=== PATIENT | male | born 1975 | race Caucasian/White ===

== ENCOUNTER 2020-09-13 08:38 | Emergency (ER) | payer BC ==
[2020-09-13] MEDS ORDERED: Sodium Chloride 0.9% 10 ML Syringe FLUSH PRN (08:48)
[2020-09-13] MEDS ORDERED: Aspirin 81 MG Tab.Chew PO ONE (08:48)
[2020-09-13] MEDS ORDERED: Sodium Chloride 0.9% 2.5 ML Syringe FLUSH PRN ×2 (08:48)
[2020-09-13] MEDS ORDERED: Sodium Chloride 0.9% 1,000 ML IV ONE (08:48)
[2020-09-13] MEDS ORDERED: LORazepam 2 MG/ML SDV IVPUSH ONE (08:49)
--- NOTE | 2020-09-13 08:53 | EDM.PDOC ---
ED HPI GENERAL MEDICAL PROBLEM - General Stated Complaint: AMBULANCE Time Seen by Provider: 09/13/20 08:42 - History of Present Illness INITIAL COMMENTS - FREE TEXT/NARRATIVE: History of present illness: [] Patient presents to the ED after waking up this morning experiencing some severe anxiety and a pain in the pit of his stomach that caused him to be short of breath. He is never had this type of thing before he thinks it might be anxiety he has a history of hypertension and diabetes pain was epigastric did not radiate was associated with shortness of breath he has had some anxiety and difficulty sleeping lately he denies any leg pain or leg swelling cough congestion or fever nothing seems to make it better or worse Review of systems: As per history of present illness and below otherwise all systems reviewed and negative. Past medical history: As per history of present illness and as reviewed below otherwise noncontributory. Surgical history: As per history of present illness and as reviewed below otherwise noncontributory. Social history: No reported history of drug or alcohol abuse. Family history: As per history of present illness and as reviewed below otherwise noncontributory. Physical exam: HEENT: Atraumatic, normocephalic, pupils reactive, negative for conjunctival pallor or scleral icterus, mucous membranes moist, throat clear, neck supple, nontender, trachea midline. Lungs: Clear to auscultation, breath sounds equal bilaterally, chest nontender. Heart: S1S2, regular, negative for clicks, rubs, or JVD. Abdomen: Soft, nondistended, nontender. Negative for masses or hepatosplenomegaly. Negative for costovertebral tenderness. Pelvis: Stable nontender. Genitourinary: Deferred. Rectal: Deferred. Extremities: Atraumatic, negative for cords or calf pain. Neurovascular unremarkable. Neuro: Awake, alert, oriented. Cranial nerves II through XII unremarkable. Cerebellum unremarkable. Motor and sensory unremarkable throughout. Exam nonfocal. Diagnostics: [] Therapeutics: [] Impression: Epigastric pain and anxiety [] Plan: Cardiac work-up Ativan for his anxiety reassess the patient [] Definitive disposition and diagnosis as appropriate pending reevaluation and review of above. general Pain Score (Numeric/FACES): 7 - Related Data Allergies Allergy/AdvReac Type Severity Reaction Status Date / Time No Known Allergies Allergy Verified 09/13/20 08:53 Home Meds: Home Meds FLUoxetine [PROzac] 60 mg PO DAILY 09/13/20 [History] Folic Acid 1 mg PO DAILY 09/13/20 [History] Losartan/Hydrochlorothiazide [Losartan-HCTZ 100-25 MG] 1 each PO DAILY 09/13/20 [History] amLODIPine [Norvasc] 5 mg PO DAILY 09/13/20 [History] metFORMIN [Glucophage] 500 mg PO BIDMEALS 09/13/20 [History] ED ROS GENERAL - Review of Systems Review Of Systems: See Below ED EXAM, GENERAL - Physical Exam Exam: See Below #1 Interpretation EKG Interpretation Comments: EKG normal sinus rhythm rate of 115 bpm sinus tachycardia nonspecific ST-T changes no uma ischemia read and interpreted by me Course - Vital Signs Text/Narrative:: Patient has 2 - troponins and nonischemic EKG he feels better in the emergency department at this time. He will be discharged home there is noted that he has a mildly elevated liver functions and lipase he is counseled to stop drinking and get help with his drinking. One-view portable chest read interpreted by me no acute cardiopulmonary pathology is evident Last Recorded V/S: Last Vital Signs Temp 36.8 C 09/13/20 12:12 Pulse 99 09/13/20 12:12 Resp 14 09/13/20 12:12 BP 158/80 H 09/13/20 12:12 Pulse Ox 95 09/13/20 12:12 - Orders/Labs/Meds Orders: Active Orders 24 hr Category Date Time Status EKG Documentation Completion [RC] STAT Care 09/13/20 08:48 Active Sodium Chloride 0.9% [Saline Flush] Med 09/13/20 08:48 Active 10 ml FLUSH ASDIRECTED PRN Sodium Chloride 0.9% [Saline Flush] Med 09/13/20 08:48 Active 2.5 ml FLUSH ASDIRECTED PRN Saline Lock Insert [OM.PC] Stat Oth 09/13/20 08:48 Ordered Medication Orders Sodium Chloride (Saline Flush) 10 ml FLUSH ASDIRECTED PRN PRN Reason: Keep Vein Open Last Admin: 09/13/20 09:03 Dose: 10 ml Documented by: [id number] Sodium Chloride (Saline Flush) 2.5 ml FLUSH ASDIRECTED PRN PRN Reason: Keep Vein Open Last Admin: 09/13/20 09:04 Dose: 2.5 ml Documented by: [id number] Labs: Laboratory Tests 09/13/20 09/13/20 09/13/20 Range/Units 08:49 08:49 11:37 WBC 11.11 H (4.0-11.0) K/uL RBC 5.26 (4.50-5.90) M/uL Hgb 17.5 H (13.0-17.0) g/dL Hct 50.0 (38.0-50.0) % MCV 95.1 (80.0-98.0) fL MCH 33.3 H (27.0-32.0) pg MCHC 35.0 (31.0-37.0) g/dL RDW Std Deviation 43.4 (28.0-62.0) fl RDW Coeff of Sydnie 13 (11.0-15.0) % Plt Count 238 (150-400) K/uL MPV 10.70 (7.40-12.00) fL Neut % (Auto) 76.6 (48.0-80.0) % Lymph % (Auto) 14.8 L (16.0-40.0) % [place] % (Auto) 6.7 (0.0-15.0) % Eos % (Auto) 1.4 (0.0-7.0) % Baso % (Auto) 0.5 (0.0-1.5) % Neut # (Auto) 8.5 H (1.4-5.7) K/uL Lymph # (Auto) 1.6 (0.6-2.4) K/uL [place] # (Auto) 0.7 (0.0-0.8) K/uL Eos # (Auto) 0.2 (0.0-0.7) K/uL Baso # (Auto) 0.1 (0.0-0.1) K/uL Nucleated RBC % 0.0 /100WBC Nucleated RBCs # 0 K/uL Sodium 135 L (136-148) mmol/L Potassium 3.6 (3.5-5.1) mmol/L Chloride 97 L (98-107) mmol/L Carbon Dioxide 24.3 (21.0-32.0) mmol/L BUN 15 (7.0-18.0) mg/dL Creatinine 1.0 (0.8-1.3) mg/dL Est Cr Clr Drug Dosing 110.74 mL/min Estimated GFR (MDRD) > 60.0 ml/min Glucose 131 H (74-106) mg/dL Calcium 9.6 (8.5-10.1) mg/dL Total Bilirubin 1.4 H (0.2-1.0) mg/dL AST 93 H (15-37) IU/L ALT 155 H (14-63) IU/L Alkaline Phosphatase 99 (46-116) U/L Troponin I < 0.050 < 0.050 (0.000-0.056) ng/mL Total Protein 9.1 H (6.4-8.2) g/dL Albumin 4.4 (3.4-5.0) g/dL Globulin 4.7 H (2.6-4.0) g/dL Albumin/Globulin Ratio 0.9 (0.9-1.6) Lipase 645 H (73-393) U/L Meds: Medications Generic Name Dose Route Start Last Admin Trade Name Freq PRN Reason Stop Dose Admin Sodium Chloride 10 ml 09/13/20 08:48 09/13/20 09:03 Saline Flush FLUSH 10 ml ASDIRECTED PRN Administration Keep Vein Open Sodium Chloride 2.5 ml 09/13/20 08:48 09/13/20 09:04 Saline Flush FLUSH 2.5 ml ASDIRECTED PRN Administration Keep Vein Open Discontinued Medications Generic Name Dose Route Start Last Admin Trade Name Kenia PRN Reason Stop Dose Admin Aspirin 324 mg 09/13/20 08:48 09/13/20 09:02 Aspirin PO 09/13/20 08:49 324 mg ONETIME ONE Administration Sodium Chloride 1,000 mls @ 999 mls/hr 09/13/20 08:48 09/13/20 09:02 Normal Saline IV 09/13/20 09:48 999 mls/hr BOLUS ONE Administration Lorazepam 1 mg 09/13/20 08:49 09/13/20 09:03 Ativan IVPUSH 09/13/20 08:50 1 mg ONETIME ONE Administration Sodium Chloride 2.5 ml 09/13/20 08:48 Saline Flush FLUSH ASDIRECTED PRN Keep Vein Open Departure - Departure Time of Disposition: 12:35 Disposition: Home, Self-Care 01 Condition: Good Clinical Impression: Chest pain - Discharge Information *PRESCRIPTION DRUG MONITORING PROGRAM REVIEWED*: Not Applicable *COPY OF PRESCRIPTION DRUG MONITORING REPORT IN PATIENT REAL: Not Applicable Instructions: Shortness of Breath, Adult, [id number], Nonspecific Chest Pain, Adult Referrals: Terence Dumas MD [Primary Care Provider] - Additional Instructions: The following information is given to patients seen in the emergency department who are being discharged to home. This information is to outline your options for follow-up care. We provide all patients seen in our emergency department with a follow-up referral. The need for follow-up, as well as the timing and circumstances, are variable depending upon the specifics of your emergency department visit. If you don't have a primary care physician on staff, we will provide you with a referral. We always advise you to contact your personal physician following an emergency department visit to inform them of the circumstance of the visit and for follow-up with them and/or the need for any referrals to a consulting specialist. The emergency department will also refer you to a specialist when appropriate. This referral assures that you have the opportunity for follow-up care with a specialist. All of these measure are taken in an effort to provide you with optimal care, which includes your follow-up. Under all circumstances we always encourage you to contact your private physician who remains a resource for coordinating your care. When calling for follow-up care, please make the office aware that this follow-up is from your recent emergency room visit. If for any reason you are refused follow-up, please contact the [facility] Emergency Department at and asked to speak to the emergency department charge nurse. Sepsis Event Note (ED) - Focused Exam Vital Signs: Vital Signs Temp Pulse Resp BP Pulse Ox 09/13/20 12:12 36.8 C 99 14 158/80 H 95 09/13/20 11:12 95 16 146/78 H 97 09/13/20 10:08 100 16 133/76 99 09/13/20 09:41 100 20 149/83 H 96 09/13/20 08:50 36.2 C 116 H 20 167/98 H 96 - My Orders Last 24 Hours: My Active Orders 09/13/20 08:48 EKG Documentation Completion [RC] STAT Sodium Chloride 0.9% [Saline Flush] 10 ml FLUSH ASDIRECTED PRN Sodium Chloride 0.9% [Saline Flush] 2.5 ml FLUSH ASDIRECTED PRN Saline Lock Insert [OM.PC] Stat - Assessment/Plan Last 24 Hours: My Active Orders 09/13/20 08:48 EKG Documentation Completion [RC] STAT Sodium Chloride 0.9% [Saline Flush] 10 ml FLUSH ASDIRECTED PRN Sodium Chloride 0.9% [Saline Flush] 2.5 ml FLUSH ASDIRECTED PRN Saline Lock Insert [OM.PC] Stat
--- NOTE | 2020-09-13 09:16 | CR ---
INDICATION: Chest pain COMPARISON: None TECHNIQUE: Single-view study FINDINGS: TUBES AND LINES: None. HEART AND MEDIASTINUM: The heart size is normal. The mediastinal contour appears normal for patient age. LUNGS AND PLEURAL SPACES: The lungs appear normal.There pleural spaces are unremarkable. OSSEOUS STRUCTURES: Age-appropriate appearance. No acute focal finding. IMPRESSION: No evidence of active pulmonary disease. Dictated by Kalia La MD @ Sep 13 2020 9:15AM Signed by Dr. Kalia La @ Sep 13 2020 9:16AM
[2020-09-13 09:25] LABS: BLOOD UREA NITROGEN,BUN 15 mg/dL (7.0-18.0); CARBON DIOXIDE,CO2 24.3 mmol/L (21.0-32.0); CHLORIDE,CL 97 mmol/L (98-107); GLUCOSE RANDOM 131 mg/dL (74-106); LIPASE 645 U/L (73-393); POTASSIUM,K 3.6 mmol/L (3.5-5.1); SODIUM,NA 135 mmol/L (136-148)
== END 2020-09-13 12:45 | disposition home or self-care (01) ==
LOC: MW.ED 08:38
DX: F41.9 Anxiety disorder, unspecified (principal); R10.13 Epigastric pain; I10 Essential (primary) hypertension; E11.9 Type 2 diabetes mellitus without complications; R74.8 Abnormal levels of other serum enzymes; Z79.84 Long term (current) use of oral hypoglycemic drugs; Z79.899 Other long term (current) drug therapy
CPT/HCPCS: 36415; 71045; 80053; 83690; 84484; 85025; 93005; 96374; 99285; A9270; J2060; J7030; 93010; 99283

== ENCOUNTER 2021-02-23 12:42 | Emergency (ER) | payer BC ==
[2021-02-23] MEDS ORDERED: Tetracaine HCl/PF 0.5% 4 ML Bottle EYERT ONE (13:25)
--- NOTE | 2021-02-23 13:28 | EDM.PDOC ---
ED HPI GENERAL MEDICAL PROBLEM - General Chief Complaint: Eye Problems Stated Complaint: something in rt eye Time Seen by Provider: 02/23/21 13:14 - History of Present Illness INITIAL COMMENTS - FREE TEXT/NARRATIVE: 45-year-old male presents with foreign body in right eye. Patient was doing some grinding and welding on his trunk 2 days ago. He did not feel anything initially but over the last 2 days has had gradually worsening right eye irritation some photophobia. No blurry vision no double vision some increased tearing. Patient has been trying to wash it with Visine but has been unable to get it out. right eye Pain Score (Numeric/FACES): 10 - Related Data Allergies Allergy/AdvReac Type Severity Reaction Status Date / Time No Known Allergies Allergy Verified 02/23/21 13:15 Home Meds: Home Meds FLUoxetine [PROzac] 60 mg PO DAILY 09/13/20 [History] Folic Acid 1 mg PO DAILY 09/13/20 [History] Losartan/Hydrochlorothiazide [Losartan-HCTZ 100-25 MG] 1 each PO DAILY 09/13/20 [History] amLODIPine [Norvasc] 5 mg PO DAILY 09/13/20 [History] metFORMIN [Glucophage] 500 mg PO BIDMEALS 09/13/20 [History] predniSONE [Prednisone] 02/23/21 [History] Past Medical History Cardiovascular History: Reports: Hypertension Musculoskeletal History: Reports: RA Psychiatric History: Reports: Anxiety, Depression Endocrine/Metabolic History: Reports: Diabetes, Type II - Infectious Disease History Infectious Disease History: Reports: Chicken Pox Social & Family History - Family History Family Medical History: No Pertinent Family History - Tobacco Use Tobacco Use Status *Q: Current Every Day Tobacco User Years of Tobacco use: 20 Packs/Tins Daily: 2 - Recreational Drug Use Recreational Drug Use: Yes Drug Use in Last 12 Months: Yes Recreational Drug Type: Reports: Marijuana/Hashish Recreational Drug Use Frequency: Daily ED ROS GENERAL - Review of Systems Review Of Systems: See Below Free Text/Narrative/Comment: General: No fever. Eyes: Per HPI ENT: No sore throat. Neurologic: No headache. ED EXAM GENERAL W FULL EYE - Physical Exam Exam: See Below Text/Narrative:: General Appearance: No acute distress, appears comfortable HEENT: Normocephalic/atraumatic, normal lids and lashes, right eye conjunctival injection, foreign body in the cornea is visible at the 6 o'clock position in the middle of the iris just inferior to the pupil no hyphema, vision intact nothing suggest globe injury it is a metallic appearing jagged foreign body the majority of which is below the surface of the cornea with a small flat surface process treating out. Neck: Normal range of motion Neurologic: Awake, alert, no obvious deficits, moving all extremities Psychiatric: Appropriate, cooperative Course - Vital Signs Last Recorded V/S: Last Vital Signs Temp 97.6 F 02/23/21 13:46 Pulse 91 02/23/21 13:46 Resp 16 02/23/21 13:46 BP 117/69 02/23/21 13:46 Pulse Ox 93 L 02/23/21 13:46 - Orders/Labs/Meds Meds: Medications Discontinued Medications Generic Name Dose Route Start Last Admin Trade Name Freq PRN Reason Stop Dose Admin Tetracaine HCl 1 ml 02/23/21 13:25 02/23/21 13:32 Tetracaine Hcl/Pf 0.5% 4 Ml Bottle EYERT 02/23/21 13:26 4 drop ASDIRECTED ONE Administration Departure - Departure Time of Disposition: 14:06 Disposition: Home, Self-Care 01 Condition: Good Clinical Impression: Corneal foreign body - Discharge Information *PRESCRIPTION DRUG MONITORING PROGRAM REVIEWED*: Not Applicable *COPY OF PRESCRIPTION DRUG MONITORING REPORT IN PATIENT REAL: Not Applicable Referrals: Terence Merchant MD [Ordering Only Provider] - Forms: ED Department Discharge Additional Instructions: Dr. Merchant will meet you in his office which is across the street in the [facility] please await near door #1. Dr. Merchant is currently at home he should arrive between 220 and 230 today. It is very important that you be evaluated today to have this foreign body addressed. The following information is given to patients seen in the emergency department who are being discharged to home. This information is to outline your options for follow-up care. We provide all patients seen in our emergency department with a follow-up referral. The need for follow-up, as well as the timing and circumstances, are variable depending upon the specifics of your emergency department visit. If you don't have a primary care physician on staff, we will provide you with a referral. We always advise you to contact your personal physician following an emergency department visit to inform them of the circumstance of the visit and for follow-up with them and/or the need for any referrals to a consulting specialist. The emergency department will also refer you to a specialist when appropriate. This referral assures that you have the opportunity for follow-up care with a specialist. All of these measure are taken in an effort to provide you with optimal care, which includes your follow-up. Under all circumstances we always encourage you to contact your private physician who remains a resource for coordinating your care. When calling for follow-up care, please make the office aware that this follow-up is from your recent emergency room visit. If for any reason you are refused follow-up, please contact the [facility] Emergency Department at and asked to speak to the emergency department charge nurse. Sepsis Event Note (ED) - Evaluation Sepsis Screening Result: No Definite Risk - Focused Exam Vital Signs: Vital Signs Temp Pulse Resp BP Pulse Ox 02/23/21 13:46 97.6 F 91 16 117/69 93 L 02/23/21 13:13 98.7 F 95 16 139/71 93 L - Assessment/Plan Assessment:: 45-year-old male presenting with small foreign body that appears to be embedded in the cornea. Will numb with tetracaine and evaluate by a slit-lamp. If it is still on the surface and can be easily and safely removed here we will proceed with this. However, if not may need referral to ophthalmology. 1345: On slit-lamp exam the majority of the foreign body is buried underneath the surface of the cornea and a small amount does remain but given that the majority of the foreign body is deep to the corneal surface think ophthalmology removal will yield a better result. Await callback from Dr. Merchant. 1405: Patient discussed with Dr. Merchant. He will meet the patient in his office between 2:20 and 2:30 today to evaluate the foreign body and provide definitive treatment. Patient cell phone number was given to Dr. Merchant. Patient understands instructions and need for follow-up.
== END 2021-02-23 14:20 | disposition home or self-care (01) ==
LOC: MW.ED 12:42
DX: T15.01XA Foreign body in cornea, right eye, initial encounter (principal); I10 Essential (primary) hypertension; E11.9 Type 2 diabetes mellitus without complications; Z72.0 Tobacco use; Z79.84 Long term (current) use of oral hypoglycemic drugs; Z79.899 Other long term (current) drug therapy
CPT/HCPCS: 99282; 99283